=== PATIENT | female | born 1965 | race Caucasian/White ===

== ENCOUNTER 2020-12-05 15:03 | Emergency (ER) | payer MEDICARE ==
[2020-12-05 15:52] LABS: HEMOGLOBIN 14.4 gm/dl (12.3-15.3); RED BLOOD COUNT 4.78 M/UL (4.00-5.10); WHITE BLOOD COUNT 11.2 K/UL (4.5-11.0)
[2020-12-05 16:26] LABS: BUN/CREATININE RATIO 7 (0-10)
[2020-12-05] MEDS ORDERED: K-DUR TAB 10 M10 MEQ PO (18:25)
== END 2020-12-05 18:35 | disposition left against medical advice (07) ==
LOC: ER1 15:03 → CDU 17:59 → ER1 17:59
PROVIDERS: Family Medicine
DX: R41.3 Other amnesia (principal); R63.4 Abnormal weight loss; F31.9 Bipolar disorder, unspecified; F17.200 Nicotine dependence, unspecified, uncomplicated; Z53.20 Procedure and treatment not carried out because of patient's decision for unspecified reasons; Z20.822 Contact with and (suspected) exposure to COVID-19
CPT/HCPCS: 70450; 71045; 80053; 80307; 82140; 82550; 82553; 83605; 83874; 84439; 84443; 84484; 85025; 93005; 99284; G0480; U0002

== ENCOUNTER → 2021-11-02 | Outpatient (CLI) | payer MEDICARE ==
[~2021-11-02] MED LIST: K-DUR TAB 10 M10 MEQ PO
== END ==
LOC: ECHO 10-30 10:30
DX: I31.1 Chronic constrictive pericarditis (principal); I31.3 Pericardial effusion (noninflammatory)
CPT/HCPCS: ECHO; 93306